=== PATIENT | female | born 1980 | race Caucasian/White ===

== ENCOUNTER → 2016-08-03 | Outpatient (CLI) | payer BC ==
[~2016-08-03] MED LIST: IBUP-238 PO; PREN0.01 PO; PREN29TA PO
== END ==
LOC: CPRE 10:06
PROVIDERS: ATTEND Obstetrics & Gynecology
DX: Z01.812 Encounter for preprocedural laboratory examination (principal); T83.32XS Displacement of intrauterine contraceptive device, sequela

== ENCOUNTER → 2016-08-05 | Day surgery (SDC) | payer BC ==
[~2016-08-05] VITALS: Ht 157.5 cm; Wt 57.9 kg
[~2016-08-05] MED LIST changes: +*ONDANSETRON 4 MG VIAL PERIprocedural Use ONLY ONE; +*PROMETHAZINE 25 MG/ML VIAL PERIprocedural use ONLY ONE; +ACETAMINOPHEN 1000 MG/100 ML VIAL IV ONE; +DEXAMETHASONE SOD PHOS 4 MG/ML VIAL ONE; +DO NOT ADM ANY ANTICOAGULANT DRUGS XX PRN; +FAMOTIDINE 20 MG/2 ML VIAL ONE; -IBUP-238 PO; +INSULIN HUMAN REGULAR 1,000 UNITS/10 ML VIAL SQ PRN; +KETOROLAC TROMETHAMINE 60 MG/2 ML (IM) VIAL IM ONE; +LACTATED RINGER'S 1000 ML IV SCH; +METOPROLOL TARTRATE 25 MG TAB PO PRN; +MIDAZOLAM HCL 2 MG/2 ML VIAL ONE; +ONDANSETRON HCL 4 MG/2 ML VIAL IV PUSH ONE; +ONDANSETRON ODT 4 MG TAB PO PRN; -PREN0.01 PO; +PROPOFOL 200 MG/20 ML AMP IV ONE; +SODIUM CHLORID 0.9% 500 ML IV SCH; +ceFAZolin 1,000 MG/NS 100 ML IV SCH; +oxyCODONE/ACETAMINOPHEN 5 MG/325 MG TAB PO ONE
[2016-08-05 10:22] VITALS: BP 114/69; PULSE 63; RESP 20; TEMP 97.3; O2SAT 99
--- NOTE | 2016-08-05 12:56 | RADRPT ---
EXAM DATE/TIME: 08/05/2016 12:14 [place] COMPARISON: No previous studies available for comparison. INDICATIONS : Evaluate for retained piece of IUD. MEDICAL HISTORY : None. SURGICAL HISTORY : None. ENCOUNTER: Initial ACUITY: 1 day PAIN SCORE: Non-responsive. LOCATION: Abdomen. FINDINGS: Supine view of the abdomen was performed. The abdominal bowel gas pattern is normal. No abnormal ma sses, calcifications, or organomegaly is seen. The osseous structures are unremarkable. No foreign b kamila appreciated CONCLUSION: Negative Ulises Sutton MD on August 05, 2016 at 12:52 Board Certified Radiologist. This report was verified electronically.
--- NOTE | 2016-08-05 13:03 | HHI.PR ---
Immediate Post Op Note Procedure Date: Aug 05, 2016 Pre Op Diagnosis: Retained IUD arm Post Op Diagnosis: Normal uterus, no iud localized Surgeon: Breanne Reynoso Field Applications Specialist(s): Meera Augustine Procedure: Diagnostic hysteroscopy and curettage Findings: 8 cm uterus, anteverted, no iud visualized on hysteroscopy. Curettage performed , no iud appreciated. Fluid balance- deficit less than 100ml NS KUB- no iud seen Complications: none Anesthesia: LMA Drains: None Fluids: 600ml lr IVF Patient to: PACU Patient Condition: Good Breanne Reynoso MD Aug 05, 2016 13:03
--- NOTE | 2016-08-05 13:04 | HHI.DCPOC ---
Discharge Care Plan Diagnosis: (1) Status post hysteroscopy Report Symptoms to Your Doctor -Temperate above 100.5 degrees -Redness, of incision or excessive or foul smelling drainage -Unusual pain or calf pain -Increased vaginal bleeding -Painful or difficulty urinating -Feelings of extreme sadness or anxiety after 2 weeks Goals to Promote Your Health * To prevent worsening of your condition and complications * To maintain your health at the optimal level Directions to Meet Your Goals Take your medications as prescribed Follow your dietary instruction Follow activity as directed Ensure plenty of rest for recovery Drink fluids for hydration Keep your appointments as scheduled Take your immunizations and boosters as scheduled If your symptoms worsen call your PCP, if no PCP go to Urgent Care Center or Emergency Room Smoking is Dangerous to Your Health. Avoid second hand smoke Call the 24-hour crisis hotline for domestic abuse at Breanne Reynoso MD Aug 05, 2016 13:04
[2016-08-05 15:57] VITALS: BP 96/62; PULSE 52; RESP 16; TEMP 96.6; O2SAT 100
--- NOTE | 2016-08-11 07:25 | MP ---
cc: BREANNE REYNOSO MD DATE OF SURGERY 08/05/2016 PREOPERATIVE DIAGNOSIS Retained IUD arm. POSTOPERATIVE DIAGNOSIS Normal anatomy, no IUD arm found. PROCEDURE PERFORMED Diagnostic hysteroscopy, dilation and curettage. INDICATIONS The patient is a 36-year-old female who came to clinic to have IUD removed as she desired to conceive. She had a Paragard in place placed by another provider. At this time of removal, one of the arms broke off of the device. An ultrasound was performed and noted the arm was imbedded in the right lower uterine segment. An attempt was made for removal at the office with uterine forceps, but was unsuccessful. She was scheduled for hysteroscopy with removal. INTRAOPERATIVE COMPLICATIONS None ANTIBIOTICS Ancef one gram given IV preoperatively ESTIMATED BLOOD LOSS Minimal IV FLUIDS 600 mL of lactated Ringer URINE OUTPUT 100 mL urine prior to the procedure. INTRAOPERATIVE FINDINGS The uterus anteverted, 8 cm in size. No adnexal masses appreciated. Hysteroscopy, normal uterine cavity. No IUD arm noted. Intraoperative KUB performed. No retained arm was noted in the abdomen or pelvis. PROCEDURE IN DETAIL After informed consent, the patient was taken to the operating room where LMA was performed without complication. She was placed in Diogo stirrups in the dorsolithotomy position. The perineum was prepped and draped in a normal sterile fashion. A red rubber Hamilton was used to drain the bladder. A bivalve speculum was placed in the vagina. Single-toothed tenaculum was placed on the anterior lip of the cervix. The cervix was dilated to accommodate an operative hysteroscope. There was no arm noted on imaging with hysteroscopy. Sharp curettage was performed to see if arm palbable, which it was not. Intraoperative x-ray was performed and noted that there was no IUD arm in the pelvis or abdomen. It was decided to abandon the procedure at that time as IUD arm was no longer noted on imaging. The patient was placed in supine position. Anesthesia was reversed without complication. Fluid deficit was less than 100 mL of normal saline. Breanne Reynoso MD PE/LORI /6:58 PM /7:04 AM ROSSY
== END | disposition home or self-care (01) ==
LOC: HSDC 09:32
PROVIDERS: ATTEND Obstetrics & Gynecology
DX: T83.32XS Displacement of intrauterine contraceptive device, sequela (principal)
CPT/HCPCS: 00952; 58558; 74000; 86850; 86900; 86901; J0131; J0690; J1100; J1885; J2250; J2405; J2550; J3010; J7120

== ENCOUNTER 2017-06-07 20:50 | Inpatient (IN) | payer BC ==
[2017-06-07] VITALS (33 sets, daily range): BP systolic 100–109; BP diastolic 52–62; PULSE 54–74; RESP 18; TEMP 98.1
[~2017-06-07 20:50] MED LIST changes: -*ONDANSETRON 4 MG VIAL PERIprocedural Use ONLY ONE; -*PROMETHAZINE 25 MG/ML VIAL PERIprocedural use ONLY ONE; -ACETAMINOPHEN 1000 MG/100 ML VIAL IV ONE; -DEXAMETHASONE SOD PHOS 4 MG/ML VIAL ONE; -DO NOT ADM ANY ANTICOAGULANT DRUGS XX PRN; -FAMOTIDINE 20 MG/2 ML VIAL ONE; -INSULIN HUMAN REGULAR 1,000 UNITS/10 ML VIAL SQ PRN; -KETOROLAC TROMETHAMINE 60 MG/2 ML (IM) VIAL IM ONE; -LACTATED RINGER'S 1000 ML IV SCH; -METOPROLOL TARTRATE 25 MG TAB PO PRN; -MIDAZOLAM HCL 2 MG/2 ML VIAL ONE; -ONDANSETRON HCL 4 MG/2 ML VIAL IV PUSH ONE; -ONDANSETRON ODT 4 MG TAB PO PRN; -PROPOFOL 200 MG/20 ML AMP IV ONE; -SODIUM CHLORID 0.9% 500 ML IV SCH; -ceFAZolin 1,000 MG/NS 100 ML IV SCH; -oxyCODONE/ACETAMINOPHEN 5 MG/325 MG TAB PO ONE
[2017-06-07] MEDS ORDERED: SODIUM CHLORIDE 0.9% FLUSH 10 ML FLUSH IV FLUSH PRN (22:15)
[2017-06-07] MEDS ORDERED: DINOPROSTONE 10 MG INSERT-LEAVE FOR 12 HOURS VAGINAL ONE (22:15)
[2017-06-07] MEDS ORDERED: LACTATED RINGER'S 1000 ML INJ 1,000 ML IV ONE (22:15)
[2017-06-07] MEDS ORDERED: NS 1000 ML OTHER PRN (22:15)
[2017-06-07 22:24] LABS: BACTERIA, URINE RARE /hpf; BLOOD, URINE NEG (NEG); COMMENT (UR) CULT NOT INDICATED; CULTURE IF INDICATED CULT NOT INDICATED; GLUCOSE,URINE NEG (NEG); KETONE, URINE NEG (NEG); NITRITE,URINE NEG (NEG); PH, URINE 8.5 (5.0-8.5); SQUAMOUS EPITHELIAL CELL URINE 8 /hpf (0-5); URINE COLOR YELLOW (YELLW/STRAW)
[2017-06-07 22:29] LABS: AUTOMATED NEUTROPHIL # 5.5 TH/MM3 (1.8-7.7); BASOPHIL % 0.3 % (0.0-2.0); EOSINOPHIL # 0.2 TH/MM3 (0-0.4); EOSINOPHIL % 2.7 % (0.0-4.0); HEMATOCRIT 35.6 % (35.0-46.0); HEMO FLAGS DIFF FINAL; LYMPH % 16.4 % (9.0-44.0); LYMPHOCYTE # 1.3 TH/MM3 (1.0-4.8); MEAN CELL VOLUME 97.6 FL (80.0-100.0); MEAN CORPUSCULAR HEMOGLOBIN 34.4 PG (27.0-34.0); MEAN CORPUSCULAR HGB CONC 35.2 % (32.0-36.0); MONO % 8.4 % (0.0-8.0); NEUT % 72.2 % (16.0-70.0); PLATELET COUNT 152 TH/MM3 (150-450); RED BLOOD COUNT 3.65 MIL/MM3 (4.00-5.30); RED CELL DISTRIBUTION WIDTH 13.3 % (11.6-17.2); WHITE BLOOD COUNT 7.7 TH/MM3 (4.0-11.0)
[2017-06-08] VITALS (194 sets, daily range): BP systolic 69–118; BP diastolic 41–71; PULSE 52–108; RESP 18; TEMP 97.7–98.1
--- NOTE | 2017-06-08 08:05 | HHI.HP ---
HPI Chief Complaint iol ama at term Travel History International Travel<30 Days: No Contact w/Intl Traveler<30Days: No Known Affected Area: No History of Present Illness HPI Pt is a 37 yo with iup at 40w4d here for iol at term. She has good fm, neg lof, vb. Irreg contractions. She has had an uncomplicated . Weeks Gestation: 39 Para: 1 : 3 Miscarriage: 1 History Past Medical History Medical History: Denies Significant Hx Obstetric History Obstetric History G1 2008 Male, delivered at 40 wk, wt 8 lb with Reanna Anderson G2 MAB, D&C G3 current Past Surgical History Narrative Surgical D&C Dx HSC Family History Family History: Negative Social History Alcohol Use: No Tobacco Use: No Substance Abuse: No Allergies-Medications (Allergen,Severity, Reaction): Coded Allergies: nitrofurantoin (Unverified Allergy, Severe, Hives, 03/08/17) Home Meds Reported Medications Vit-Iron Carbonyl ( Plus Iron 29-1 mg) 1 Tab Tab, 1 TAB PO DAILY for Nutritional Supplement, #30 TAB 0 Refills 08/03/16 Review of Systems General / Constitutional: No: Fever, Weight Gain, Chills, Other Eyes: No: Diploplia, Blurred Vision, Visual changes, Pain, Photophobia HENT: No: Headaches, Vertigo, Lightheadedness Cardiovascular: No: Irregular Rhythm, Chest Pain or Discomfort, Palpitations, Tachycardia, Syncope, Varicosities, Edema, Cyanosis Respiratory: No: Cough, Short of Breath, Other Gastrointestinal: No: Nausea, Vomiting, Diarrhea Genitourinary: No: Decreased Urinary Output, Oliguria Musculoskeletal: No: Limited ROM, Weakness, Cramping, Edema, Pain Skin: No Rash, No Itching, No Dryness, No Lumps, No Change in Pigmentation, No Change in Nails, No Alopecia, No Lesions Neurologic: No: Weakness, Dizziness, Syncope, Focal Abnormalities, Coordination Problem, Headache, Slurred Speech, Seizures Psychiatric: No: Depression, Suicidal Ideations, Homicidal Ideation Endocrine: No: Heat Intolerance, Cold Intolerance, Polydipsia, Polyuria, Other Physical Exam Vital Signs Date Time Temp Pulse Resp B/P (MAP) Pulse Ox O2 Delivery O2 Flow Rate FiO2 06/08/17 07:14 18 11/15/17 07:13 97.9 54 91/54 (66) 06/08/17 07:10 66 06/08/17 07:05 73 06/08/17 07:00 64 06/08/17 05:55 57 06/08/17 05:50 55 17 05:45 56 06/08/17 05:40 55 06/08/17 05:35 57 06/08/17 05:30 55 06/08/17 05:25 56 06/08/17 05:20 60 06/08/17 05:15 59 06/08/17 05:10 55 06/08/17 05:05 56 06/08/17 05:00 57 06/08/17 04:55 55 06/08/17 04:50 55 06/08/17 04:45 56 06/08/17 04:40 56 06/08/17 04:35 54 06/08/17 04:30 62 06/08/17 04:25 62 06/08/17 04:20 52 06/08/17 04:15 54 06/08/17 04:10 55 06/08/17 04:05 66 06/08/17 04:00 56 06/08/17 04:00 98.0 18 06/08/17 04:00 74 92/49 (63) 06/08/17 03:55 55 06/08/17 03:50 56 06/08/17 03:45 57 06/08/17 03:40 81 06/08/17 03:35 58 06/08/17 03:25 54 06/08/17 03:20 61 17 03:15 56 06/08/17 03:10 57 06/08/17 03:05 54 06/08/17 03:00 56 06/08/17 02:55 59 06/08/17 02:50 54 17 02:45 73 17 02:40 72 17 02:35 63 17 02:30 63 17 02:25 64 17 02:20 64 17 02:15 61 17 02:10 63 17 02:05 56 06/08/17 02:00 57 06/08/17 01:55 66 06/08/17 01:50 58 06/08/17 01:45 57 06/08/17 01:40 56 06/08/17 01:35 57 06/08/17 01:30 54 06/08/17 01:25 59 06/08/17 01:20 71 06/08/17 01:15 72 06/08/17 01:10 75 06/08/17 01:05 69 06/08/17 01:00 71 06/08/17 00:55 67 06/08/17 00:50 72 06/08/17 00:45 68 06/08/17 00:40 71 06/08/17 00:35 68 06/08/17 00:30 70 06/08/17 00:25 67 06/08/17 00:20 68 06/08/17 00:15 67 06/08/17 00:10 63 06/08/17 00:05 67 06/08/17 00:00 98.1 06/08/17 00:00 66 06/08/17 00:00 18 06/07/17 23:59 63 100/52 (68) 06/07/17 23:55 74 06/07/17 23:50 70 06/07/17 23:45 72 06/07/17 23:40 71 06/07/17 23:35 67 06/07/17 23:30 65 06/07/17 23:25 64 06/07/17 23:20 61 06/07/17 23:15 59 06/07/17 23:10 61 06/07/17 23:05 56 06/07/17 23:00 57 06/07/17 22:55 60 06/07/17 22:50 59 06/07/17 22:45 58 06/07/17 22:40 57 06/07/17 22:35 54 06/07/17 22:30 64 06/07/17 22:25 60 06/07/17 22:20 58 06/07/17 22:15 64 06/07/17 22:10 60 06/07/17 22:05 59 06/07/17 22:00 60 06/07/17 21:55 63 06/07/17 21:50 62 06/07/17 21:45 64 06/07/17 21:40 60 06/07/17 21:35 61 06/07/17 21:30 64 06/07/17 21:25 64 06/07/17 21:24 64 109/62 (78) 06/07/17 21:24 98.1 18 Narrative GENERAL: Well-nourished, well-developed patient. SKIN: Warm and dry. HEAD: Normocephalic and atraumatic. EYES: No scleral icterus. No injection or drainage. ENT: No nasal drainage noted. Mucous membranes pink. Airway patent. NECK: Supple, trachea midline. No JVD. CARDIOVASCULAR: Regular rate and rhythm without murmurs, gallops, or rubs. RESPIRATORY: Breath sounds equal bilaterally. No accessory muscle use. ABDOMEN/GI: Abdomen soft, non-tender, bowel sounds present, no rebound, no guarding Gravid to [-] weeks size Fundal Height: 39 GENITOURINARY: External Genitalia: intact and normal in appearance BUS glands: [-] Cervix: 1-2/50/-3 Presentation: [facility] Membranes: [intact Uterine Contractions: [-] FHT's: Category: I EXTREMITIES: No cyanosis or edema. BACK: Nontender without obvious deformity. No CVA tenderness. NEUROLOGICAL: Awake and alert. Motor and sensory grossly within normal limits. Five out of 5 muscle strength in all muscle groups. Normal speech. Caprini VTE Risk Assessment Caprini VTE Risk Assessment: No/Low Risk (score <= 1) Caprini Risk Assessment Model Point Value = 1 Point Value = 2 Point Value = 3 Point Value = 5 Age 41-60 Minor surgery BMI > 25 kg/m2 Swollen legs Varicose veins or History of unexplained or recurrent spontaneous Oral contraceptives or hormone replacement Sepsis (< 1 month) Serious lung disease, including pneumonia (< 1 month) Abnormal pulmonary function Acute myocardial infarction Congestive heart failure (< 1 month) History of inflammatory bowel disease Medical patient at bed rest Age 61-74 Arthroscopic surgery Major open surgery (> 45 min) Laparoscopic surgery (> 45 min) Malignancy Confined to bed (> 72 hours) Immobilizing plaster cast Central venous access Age >= 75 History of VTE Family history of VTE Factor V Leiden Prothrombin [id number] Lupus anticoagulant Anticardiolipin antibodies Elevated serum homocysteine Heparin-induced thrombocytopenia Other congenital or acquired thrombophilia Stroke (< 1 month) Elective arthroplasty Hip, pelvis, or leg fracture Acute spinal cord injury (< 1 month) Prophylaxis Regimen Total Risk Factor Score Risk Level Prophylaxis Regimen 0-1 Low Early ambulation 2 Moderate Order ONE of the following: *Sequential Compression Device (SCD) *Heparin 5000 units SQ BID 3-4 Higher Order ONE of the following medications: *Heparin 5000 units SQ TID *Enoxaparin/Lovenox 40 mg SQ daily (WT < 150 kg, CrCl > 30 mL/min) *Enoxaparin/Lovenox 30 mg SQ daily (WT < 150 kg, CrCl > 10-29 mL/min) *Enoxaparin/Lovenox 30 mg SQ BID (WT < 150 kg, CrCl > 30 mL/min) AND/OR *Sequential Compression Device (SCD) 5 or more Highest Order ONE of the following medications: *Heparin 5000 units SQ TID (Preferred with Epidurals) *Enoxaparin/Lovenox 40 mg SQ daily (WT < 150 kg, CrCl > 30 mL/min) *Enoxaparin/Lovenox 30 mg SQ daily (WT < 150 kg, CrCl > 10-29 mL/min) *Enoxaparin/Lovenox 30 mg SQ BID (WT < 150 kg, CrCl > 30 mL/min) AND *Sequential Compression Device (SCD) Data Data Vital Signs Reviewed: Yes Orders Orders Dinoprostone Vag Insert (Cervidil Vag In (06/07/17 22:15) Sodium Chloride 0.9% Flush (Ns Flush) (06/07/17 22:15) Sodium Chlor 0.9% 1000 Ml Inj (Ns 1000 M (06/07/17 22:15) Lactated Ringer's 1000 Ml Inj (Lr 1000 M (06/07/17 22:15) Sodium Chloride 0.9% Flush (Ns Flush) (06/08/17 09:00) Admit To Inpatient (06/07/17 ) Activity Oob Ad Lizbeth (06/07/17 22:07) ^ Labor Induction (06/07/17 22:07) ^ Vaginal Insert (06/07/17 22:07) ^ Vaginal Lavage (06/07/17 22:07) Heart (06/07/17 22:07) Admit To Inpatient (06/07/17 ) Vital Signs (Adult) .Per protocol (06/07/17 22:08) Activity Oob Ad Lizbeth (06/07/17 22:08) Heart (06/07/17 22:08) Amnioinfusion (06/07/17 22:08) Urinary Catheter Management .ONCE (06/07/17 22:08) Diet Liquid (06/08/17 Breakfast) Complete Blood Count With Diff (06/07/17 22:08) Hold Clot (06/07/17 22:08) Abo/Rh Blood Type (06/07/17 22:08) Urinalysis - C+S If Indicated (06/07/17 22:08) Drug Screen, Random Urine (06/07/17 22:08) Resp Oxygen Non Rebreathe Mask (06/07/17 ) ^ Epidural / Intrathecal Infus (06/07/17 22:08) Influenza (Quad) Vaccine Inj (Flu (Quadr (06/09/17 10:00) Group B Strep: Negative Labs Laboratory Tests Test 06/07/17 21:45 White Blood Count 7.7 Red Blood Count 3.65 Hemoglobin 12.6 Hematocrit 35.6 Mean Corpuscular Volume 97.6 Mean Corpuscular Hemoglobin 34.4 Mean Corpuscular Hemoglobin Concent 35.2 Red Cell Distribution Width 13.3 Platelet Count 152 Mean Platelet Volume 9.7 Neutrophils (%) (Auto) 72.2 Lymphocytes (%) (Auto) 16.4 Monocytes (%) (Auto) 8.4 Eosinophils (%) (Auto) 2.7 Basophils (%) (Auto) 0.3 Neutrophils # (Auto) 5.5 Lymphocytes # (Auto) 1.3 Monocytes # (Auto) 0.6 Eosinophils # (Auto) 0.2 Basophils # (Auto) 0.0 CBC Comment DIFF FINAL Differential Comment Urine Color YELLOW Urine Turbidity HAZY Urine pH 8.5 Urine Specific [place] 1.029 Urine Protein 30 Urine Glucose (UA) NEG Urine Ketones NEG Urine Occult Blood NEG Urine Nitrite NEG Urine Bilirubin NEG Urine Urobilinogen 2.0 Urine Leukocyte Esterase TRACE Urine RBC 2 Urine WBC 4 Urine Squamous Epithelial Cells 8 Urine Bacteria RARE Microscopic Urinalysis Comment CULT NOT INDICATED Urine Opiates Screen NEG Urine Barbiturates Screen NEG Urine Amphetamines Screen NEG Urine Benzodiazepines Screen NEG Urine Cocaine Screen NEG Urine Cannabinoids Screen NEG Assessment/Plan Problem List: (1) Advanced maternal age in multigravida ICD Codes: O09.529 - Supervision of elderly multigravida, unspecified trimester (2) Susceptible to Varicella (non-immune), currently in third trimester ICD Codes: O09.893 - Supervision of other high risk pregnancies, third trimester; Z28.3 - Underimmunization status Assessment and Plan 37 yo with iup at [id number] for iol at term 1) IOL- started w cervidil overnight; will remove after 12 hours. Then Pitocin and arom. Aware that induction can be a prolonged course, potential need for cd if arrest of labor 2) AMA- neg cfDNA, msAFP, and anatomy u/s 3) Varicella non-immune 4) GBS negative 5) Fetus- ceph, efw 8-8.5 lb Breanne Reynoso MD Jun 08, 2017 08:05
[2017-06-08] MEDS ORDERED: SODIUM CHLORIDE 0.9% FLUSH 10 ML FLUSH IV FLUSH SCH (09:00)
[2017-06-08] MEDS ORDERED: OXYTOCIN 30 UNITS/NS 500ML PREMIX IV SCH (09:30)
[2017-06-08] MEDS ORDERED: LACTATED RINGER'S 1000 ML IV SCH (10:00)
[2017-06-08] MEDS ORDERED: MINERAL OIL 10 ML VIAL TOPICAL PRN (10:00)
[2017-06-08] MEDS ORDERED: CITRIC ACID-SODIUM CITRATE LIQ 30 ML UDC PO SCH (10:00)
[2017-06-08] MEDS ORDERED: LIDOCAINE HCL 1% 50 ML VIAL INFIL PRN (10:00)
[2017-06-08] MEDS ORDERED: OXYTOCIN 30 UNITS 500ML PREMIX IV ONE (10:00)
[2017-06-08] MEDS ORDERED: NS 1000 ML IV PRN (10:00)
[2017-06-08] MEDS ORDERED: LIDOCAINE HCL 1% 50 ML VIAL I-DERMAL PRN (10:00)
[2017-06-08] MEDS ORDERED: LACTATED RINGER'S 1000 ML BOLUS IV PRN (10:00)
[2017-06-08] MEDS ORDERED: ONDANSETRON HCL 4 MG/2 ML VIAL IV PUSH PRN (10:00)
[2017-06-08] MEDS ORDERED: NS 500 ML BOLUS IV PRN (10:00)
[2017-06-08] MEDS ORDERED: fentaNYL 2MCG-BUPIV 0.125% INJ 100 ML ONE (14:46)
[2017-06-08] MEDS ORDERED: ePHEDrine/NS 25 MG/5 ML SYR ONE (15:07)
[2017-06-08] MEDS ORDERED: NO SYSTEM NARCOTICS PRN (16:00)
[2017-06-08] MEDS ORDERED: ePHEDrine/NS 25 MG/5 ML SYR IV PUSH PRN (16:00)
[2017-06-08] MEDS ORDERED: DO NOT ADMINISTER ANTICOAGULANTS PRN (16:00)
[2017-06-08] MEDS: fentaNYL 2MCG-BUPIV 0.125% 100 ML EPIDURAL SCH (17:40)
[2017-06-09] VITALS (110 sets, daily range): BP systolic 87–124; BP diastolic 36–99; PULSE 54–155; RESP 16–18; TEMP 97.6–98.4; O2SAT 100
[2017-06-09] MEDS ORDERED: OXYTOCIN 30 UNITS-500ML PREMIX 500 ML IV SCH ×2 (05:00→10:00)
--- NOTE | 2017-06-09 06:27 | HHI.PR ---
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
[2017-06-09] MEDS: fentaNYL 2MCG-BUPIV 0.125% 100 ML EPIDURAL SCH (08:50)
[2017-06-09] MEDS ORDERED: LIDOCAINE HCL 1% 50 ML VIAL ONE (09:36)
--- NOTE | 2017-06-09 09:57 | PD.OB.DELI ---
Weeks gestation: 39 Gest age assessed date: Jun 09, 2017 Gest age assessed time: 09:55 Pt started active labor?: Yes Active labor start date: Jun 09, 2017 Active labor start time: 06:21 Medical induction of labor?: Yes Medical induction start date: Jun 07, 2017 Medical induction start time: 21:00 Artificial rupture of membrane: Yes Artificial ROM date: Jun 09, 2017 Artifical ROM time: 06:21 Anesthesia: Epidural Episiotomy: None Vaginal Delivery: Normal Presentation: Occiput anterior Nuchal Cord: None Delayed cord clamping (45 sec): Yes Infant: Female Delivery date: Jun 09, 2017 Delivery time: 09:37 One Minute : 8 Five Minute : 9 Placenta: Spontaneous delivery Laceration: 2 deg Repair: Chromic interrupted, Vicryl interrupted Estimated blood loss: 150cc Additional Information CBR collected Yari Mayfield MD Jun 09, 2017 09:56
[2017-06-09] MEDS ORDERED: BENZOCAINE 20% TOPICAL SPRAY 60 ML CAN TOPICAL PRN (10:00)
[2017-06-09] MEDS ORDERED: WITCH HAZEL 50%/GLYCERIN 12.5% 40 PAD JAR TOPICAL PRN (10:00)
[2017-06-09] MEDS ORDERED: ZOLPIDEM TARTRATE 5 MG TAB PO PRN (10:00)
[2017-06-09] MEDS ORDERED: SODIUM CHLORIDE 0.9% FLUSH 10 ML FLUSH IV FLUSH PRN (10:00)
[2017-06-09] MEDS ORDERED: ACETAMINOPHEN 325 MG TAB PO PRN (10:00)
[2017-06-09] MEDS ORDERED: ALUMINUM/MAGNESIUM/SIMETH 30 ML CUP PO PRN (10:00)
[2017-06-09] MEDS ORDERED: INFLUENZA VIRUS VACCINE (QUADRIVALENT) 0.5 ML SYR IM ONE (10:00)
[2017-06-09] MEDS ORDERED: ONDANSETRON ODT 4 MG TAB PO PRN (10:00)
[2017-06-09] MEDS ORDERED: DOCUSATE SODIUM 50 MG/SENNA 8.6 MG TAB PO PRN (11:00)
[2017-06-09] MEDS ORDERED: DIPHTH/TETANUS/ACEL PERTUSSIS (BOOSTER) 0.5 ML VIAL/PFS IM ONE (16:00)
[2017-06-09] MEDS ORDERED: MEASLES, MUMPS, RUBELLA VACCINE 0.5 ML VIAL SQ ONE (16:00)
[2017-06-09] MEDS: IBUPROFEN 800 MG TAB PO PRN (16:09)
[2017-06-09] MEDS ORDERED: SODIUM CHLORIDE 0.9% FLUSH 10 ML FLUSH IV FLUSH SCH (21:00)
[2017-06-10] MEDS: IBUPROFEN 800 MG TAB PO PRN (00:51)
[2017-06-10] MEDS ORDERED: IBUP-232 PO (06:48)
--- NOTE | 2017-06-10 06:49 | HHI.DCPOC ---
Discharge Care Plan Diagnosis: (1) Normal vaginal delivery (2) Advanced maternal age in multigravida (3) Susceptible to Varicella (non-immune), currently in third trimester Your Health Problems Are: Vaginal delivery (Call to make appointment after d/c) Report Symptoms to Your Doctor -Temperature above 100.5 degrees -Redness, of incision or excessive or foul smelling drainage -Unusual pain or calf pain -Increased vaginal bleeding -Painful or difficulty urinating -Feelings of extreme sadness or anxiety after 2 weeks Goals to Promote Your Health * To prevent worsening of your condition and complications * To maintain your health at the optimal level Directions to Meet Your Goals Take your medications as prescribed Follow your dietary instruction Follow activity as directed Ensure plenty of rest for recovery Drink fluids for hydration Keep your appointments as scheduled Take your immunizations and boosters as scheduled If your symptoms worsen call your PCP, if no PCP go to Urgent Care Center or Emergency Room Smoking is Dangerous to Your Health. Avoid second hand smoke Call the 24-hour crisis hotline for domestic abuse at Walker Matos MD Jun 10, 2017 06:49
--- NOTE | 2017-06-10 06:51 | HHI.OB ---
Subjective Post Day: 1 Remarks doing well, VB < menses, pain controlled Objective Vitals/I&O Vital Signs Date Time Temp Pulse Resp B/P (MAP) Pulse Ox O2 Delivery O2 Flow Rate FiO2 06/09/17 20:45 97.7 06/09/17 20:45 68 18 99/67 (78) 06/09/17 15:00 97.6 63 18 100 06/09/17 15:00 105/55 (72) 06/09/17 11:10 16 06/09/17 11:00 76 97/45 (62) 06/09/17 10:55 16 06/09/17 10:46 67 109/49 (69) 06/09/17 10:40 16 06/09/17 10:30 64 112/65 (81) 06/09/17 10:25 16 06/09/17 10:18 72 98/52 (67) 06/09/17 10:16 155 101/36 (57) 06/09/17 10:10 16 06/09/17 10:00 124/99 (107) 06/09/17 09:58 81 102/62 (75) 06/09/17 09:55 16 06/09/17 09:35 74 06/09/17 09:30 72 118/73 (88) 06/09/17 09:30 65 06/09/17 09:25 76 06/09/17 09:20 64 06/09/17 09:15 73 06/09/17 09:10 67 06/09/17 09:05 63 06/09/17 09:00 16 06/09/17 09:00 61 06/09/17 09:00 68 103/61 (75) 06/09/17 08:55 65 06/09/17 08:50 63 06/09/17 08:50 16 06/09/17 08:45 63 06/09/17 08:40 74 06/09/17 08:35 70 06/09/17 08:30 64 16 06/09/17 08:30 59 87/46 (60) 06/09/17 08:25 63 06/09/17 08:20 64 06/09/17 08:15 65 06/09/17 08:10 62 06/09/17 08:05 63 06/09/17 08:00 62 06/09/17 08:00 16 06/09/17 08:00 67 101/51 (68) 06/09/17 07:55 64 06/09/17 07:50 63 06/09/17 07:45 58 06/09/17 07:45 98.4 18 06/09/17 07:40 70 06/09/17 07:35 60 06/09/17 07:30 63 105/65 (78) 06/09/17 07:30 64 06/09/17 07:25 77 06/09/17 07:20 71 06/09/17 07:15 66 06/09/17 07:10 66 06/09/17 07:05 74 06/09/17 07:00 83 108/63 (78) 06/09/17 07:00 59 Objective Remarks GENERAL: Well-nourished, well-developed patient. CARDIOVASCULAR: Regular rate and rhythm without murmurs, gallops, or rubs. RESPIRATORY: Breath sounds equal bilaterally. No accessory muscle use. ABDOMEN/GI: Abdomen soft, non-tender. Fundus: Firm, non-tender at umbilicus. GENITOURINARY: Light to moderate bleeding. EXTREMITIES: No cyanosis or edema, non-tender, without signs of DVT. Medications and IVs Current Medications Medications (Trade) Dose Ordered Sig/Afua Route Start Time Stop Time Status Last Admin (NS Flush) 2 ml BID IV FLUSH 06/09/17 21:00 (NS Flush) 2 ml UNSCH PRN IV FLUSH 06/09/17 10:00 (Tylenol) 650 mg Q4H PRN PO 06/09/17 10:00 (Motrin) 800 mg Q8H PRN PO 06/09/17 10:00 06/10/17 00:51 (Americaine 20% Top Spr) 1 spray Q4H PRN TOPICAL 06/09/17 10:00 06/10/17 00:52 (Tucks Pads) 1 applic QID PRN TOPICAL 06/09/17 10:00 06/10/17 00:52 (Sydnie-Colace) 2 tab Q12HR PRN PO 06/09/17 11:00 06/10/17 00:51 (Ambien) 5 mg HS PRN PO 06/09/17 10:00 (Mag-Al Plus Susp Liq) 15 ml Q8H PRN PO 06/09/17 10:00 (Zofran Odt) 4 mg Q6H PRN PO 06/09/17 10:00 Assessment/Plan Problem List: (1) Advanced maternal age in multigravida ICD Codes: O09.529 - Supervision of elderly multigravida, unspecified trimester (2) Susceptible to Varicella (non-immune), currently in third trimester ICD Codes: O09.893 - Supervision of other high risk pregnancies, third trimester; Z28.3 - Underimmunization status Assessment and Plan 37 yo s/p at 40w4d 1) PPD #1: doing well, either d/c home later today or tomorrow. Continue routine care. 2) AMA: no interventions 3) Varicella non-immune 4) PP: breast, female, Walker Matos MD Jun 10, 2017 06:51
[2017-06-10 08:00] VITALS: BP 95/62; PULSE 71; RESP 16; TEMP 98; O2SAT 99
[2017-06-10] MEDS ORDERED: INFLUENZA VIRUS VACCINE (QUADRIVALENT) 0.5 ML SYR IM ONE (12:00)
== END 2017-06-10 13:37 | disposition home or self-care (01) | DRG 775 ==
LOC: H2EA 20:50 → H1EA 06-09 11:37
PROVIDERS: ADMIT Obstetrics & Gynecology; ATTEND Obstetrics & Gynecology
PROC: 3E0P7VZ Introduction of Hormone into Female Reproductive, Via Natural or Artificial Opening (ICD-10-PCS; 2017-06-07)
PROC: 3E0R3BZ Introduction of Anesthetic Agent into Spinal Canal, Percutaneous Approach (ICD-10-PCS; 2017-06-08)
PROC: 00HU33Z Insertion of Infusion Device into Spinal Canal, Percutaneous Approach (ICD-10-PCS; 2017-06-08)
PROC: 10E0XZZ Delivery of Products of Conception, External Approach (ICD-10-PCS; principal; 2017-06-09)
PROC: 0KQM0ZZ Repair Perineum Muscle, Open Approach (ICD-10-PCS; 2017-06-09)
PROC: 10907ZC Drainage of Amniotic Fluid, Therapeutic from Products of Conception, Via Natural or Artificial Opening (ICD-10-PCS; 2017-06-09)
DX: O75.89 Other specified complications of labor and delivery (principal); O70.1 Second degree perineal laceration during delivery; Z37.0 Single live birth; Z3A.40 40 weeks gestation of pregnancy; Z28.3 Underimmunization status; Z23 Encounter for immunization
CPT/HCPCS: 59025; 80307; 81001; 85025; 86900; 86901; 90686; J2405; J2590; J3010; J7120; Q2038